=== PATIENT | male | born 1980 ===

== ENCOUNTER 2024-06-03 13:41 | Emergency (ER) | payer BC ==
[2024-06-03 14:16] LABS: BASOPHILS PERCENT AUTO 0.5 % (0.0-1.0); EOSINOPHILS PERCENT AUTO 0.6 % (1.0-3.0); HEMOGLOBIN 15.6 g/dL (14.0-18.0); LYMPHOCYTES PERCENT AUTO 10.3 % (20.5-50.1); MEAN CORPUSCULAR HEMOGLOBIN 30.6 pg (27.0-34.0); MEAN CORPUSCULAR HGB CONC 33.9 g/dL (33.0-35.0); MEAN CORPUSCULAR VOLUME 90.4 fL (80-100); MONOCYTES PERCENT AUTO 21.3 % (2-8); NEUTROPHILS PERCENT AUTO 67.3 % (42.2-75.2); PLATELET COUNT,PLT 139 10^3/uL (150-450); RED BLOOD CELL COUNT 5.09 10^6/uL (4.6-6.2); WHITE BLOOD CELL COUNT,WBC 6.6 10^3/uL (5.0-10.0)
[2024-06-03 14:28] LABS: ANION GAP 12.9 mEq/L (7-13); CALCIUM 8.9 mg/dL (8.5-10.1); CREATININE 1.2 mg/dL (0.70-1.30); EST CRCL DRUG DOSING (CG) 82.8 mL/min; MAGNESIUM 1.6 mg/dL (1.8-2.4); POTASSIUM,K 3.9 mmol/L (3.5-5.1)
[2024-06-03] MEDS: Magnesium Sulfate/Water 2 GM in Premix Bag 1 BAG IV ONE (14:58)
[2024-06-03] MEDS: Sodium Chloride 0.9% 1,000 ML IV ONE (14:58)
[2024-06-03 15:19] LABS: LACTIC ACID 1.4 mmol/L (0.4-2.0)
== END 2024-06-03 16:22 | disposition home or self-care (01) ==
LOC: DL.ED 13:41
DX: B34.9 Viral infection, unspecified (principal)
CPT/HCPCS: 36415; 71046; 80048; 83605; 83735; 84484; 85025; 87081; 87430; 87635; 87804; 96365; 99285; J3475; J7030; U0002